=== PATIENT | male | born 1965 | race Two or more races ===

== ENCOUNTER 2023-05-10 09:27 | Emergency (ER) | payer OTHER ==
[2023-05-10 09:43] VITALS: BP 197/102; PULSE 87; RESP 19; TEMP 98.1; BMI 29.2
[2023-05-10 13:39] LABS: BASO % 0.7 % (0-2.0); HEMATOCRIT 43.1 % (35.4-49); HEMOGLOBIN 14.5 GM/dL (11.7-16.9); LYMPH % 18.8 % (8-40); MCH 31.5 pg (25.7-33.7); MCHC 33.7 g/dl (32.0-35.9); MEAN CELL VOLUME 93.5 fl (80-96); MEAN PLT VOLUME 7.8 fl (7.5-11.1); MONO % 14.1 % (3.8-10.2); NEUT % 64.4 % (42.8-82.8); PLATELET COUNT 325 10^3/uL (134-434); RBC 4.61 M/mm3 (4.00-5.60); RDW 12.8 % (11.9-15.9)
[2023-05-10 14:07] LABS: POTASSIUM 3.7 mmol/L (3.5-5.1)
[2023-05-10 14:08] LABS: CALCIUM 9.1 mg/dL (8.5-10.1)
[2023-05-10 14:09] LABS: BLOOD UREA NITROGEN 15.6 mg/dL (7-18)
[2023-05-10 14:11] LABS: ALBUMIN 3.5 g/dl (3.4-5.0)
[2023-05-10 14:12] LABS: CREATININE 1.3 mg/dL (0.55-1.3)
[2023-05-10 14:13] LABS: BILIRUBIN,TOTAL 1.2 mg/dL (0.2-1)
[2023-05-10 14:14] LABS: TOT PROT 7.3 g/dl (6.4-8.2)
== END 2023-05-10 15:40 | disposition home or self-care (01) ==
LOC: JER 09:27
DX: R06.02 Shortness of breath (principal); I10 Essential (primary) hypertension; R42 Dizziness and giddiness; Z20.822 Contact with and (suspected) exposure to COVID-19
CPT/HCPCS: 0241U-QW; 36415; 71045-TC-FY; 80053; 82962; 84484; 85025; 93005; 93010; 99285-25

== ENCOUNTER 2023-05-16 18:23 | Emergency (ER) | payer OTHER ==
[2023-05-16 18:28] VITALS: BP 149/82; PULSE 92; RESP 18; TEMP 98.1; BMI 26.6
== END 2023-05-16 19:05 | disposition home or self-care (01) ==
LOC: JERFT 18:23 → JER 18:23 → JERFT 19:05
DX: Z76.0 Encounter for issue of repeat prescription (principal); I10 Essential (primary) hypertension
CPT/HCPCS: 99281-25